=== PATIENT | male | born 1960 | race Caucasian/White ===

== ENCOUNTER → 2024-04-22 | Outpatient (REF) | LOC: M LAB 08:37 | PROVIDERS: ATTEND Nurse Practitioner Adult Health | DX: Z00.00 Encounter for general adult medical examination without abnormal findings (principal) ==

== ENCOUNTER → 2024-04-24 | Outpatient (REF) | LOC: M RAD 11:56 | PROVIDERS: ATTEND Family Medicine | DX: Z02.1 Encounter for pre-employment examination (principal) ==